=== PATIENT | male | born 1970 | race African-American/Black ===

== ENCOUNTER 2021-12-28 20:03 | Inpatient (IN) ==
[2021-12-28] MEDS ORDERED: MORPHINE 2 MG/1 ML SYRINGE IV STA (20:30)
[2021-12-28] MEDS ORDERED: FUROSEMIDE 100 MG/10 ML VIAL IV STA (20:30)
[2021-12-28] MEDS ORDERED: ALBUTEROL NEB SOLN 5 MG/ML 20 ML/BOTTLE CONT NEB SCH (20:30)
[2021-12-28] MEDS ORDERED: methylPREDNISolone SOD SUC 125 MG/2 ML VIAL IV STA (20:30)
[2021-12-28] MEDS ORDERED: ONDANSETRON 4 MG/2 ML VIAL IV STA (20:30)
[2021-12-28 22:32] LABS: Basophils % 0.4 % (0.0-0.8); Eosinophils # 0.2 10*3/uL (0.0-0.87); Eosinophils % 2.1 % (0.00-10.9); Hematocrit 24.4 VOL% (42.0-52.0); Hemoglobin 7.7 GM/DL (14.0-18.0); Immature Granulocytes % 0.5 %; Immature Granulocytes Absolute 0.05 #; Lymphocytes # 3.4 10*3/uL (1.4-4.0); Lymphocytes % 31.3 % (21.2-54.2); Mean Corpuscular HGB Conc 31.6 GM/DL (32-36); Mean Corpuscular Volume 87.1 FL (87-102); Mean Platelet Volume 9.9 FL (9.6-12.0); Monocytes # 0.7 10*3/uL (0.11-0.8); Monocytes % 6.5 % (1.7-12.7); Neutrophils % 59.2 % (38.7-73.9); Platelet Count 238 T/CUMM (130-400); Red Cell Distribution Width 16.4 % (9.3-17.3); White Blood Count 10.8 T/CUMM (4-12)
[2021-12-28 22:53] LABS: Alanine Aminotransferase 34 U/L (16-61); Alkaline Phosphatase 90 U/L (45-117); Aspartate Amino Transferase 22 U/L (0-37); Bilirubin,Total < 0.39 MG/DL (0.20-1.00); Blood Urea Nitrogen 37 MG/DL (7-18); Calcium 8.4 MG/DL (8.5-10.1); Carbon Dioxide 26 MMOL/L (21-32); Chloride 103 MMOL/L (98-107); Glucose 316 MG/DL (74-106); Osmolality,Calculated 299.4 MOS/KG (273-304); Potassium 3.9 MMOL/L (3.5-5.1); Sodium 140 MMOL/L (136-145); Total Protein 5.9 G/DL (6.4-8.2)
[2021-12-28 22:53] LABS: INR 0.9; PT Patient Result 10.5 SECS (10.1-12.1)
[2021-12-29] MEDS ORDERED: MORPHINE 2 MG/1 ML SYRINGE IV PRN (02:05)
[2021-12-29] MEDS ORDERED: POTASSIUM CHLORIDE 20 MEQ TABLET PO PRN (02:05)
[2021-12-29] MEDS ORDERED: ACETAMINOPHEN 325 MG TABLET PO PRN (02:05)
[2021-12-29] MEDS ORDERED: DEXTROSE 10% 250 ML BAG IV PRN (02:05)
[2021-12-29] MEDS ORDERED: GLUCAGON 1 MG VIAL IM PRN (02:05)
[2021-12-29 03:31] LABS: Basophils % 0.1 % (0.0-0.8); Hematocrit 24.1 VOL% (42.0-52.0); Hemoglobin 7.6 GM/DL (14.0-18.0); Immature Granulocytes % 0.7 %; Immature Granulocytes Absolute 0.07 #; Lymphocytes # 0.3 10*3/uL (1.4-4.0); Lymphocytes % 2.6 % (21.2-54.2); Mean Corpuscular HGB Conc 31.5 GM/DL (32-36); Mean Corpuscular Volume 87.3 FL (87-102); Mean Platelet Volume 9.7 FL (9.6-12.0); Monocytes # 0.1 10*3/uL (0.11-0.8); Monocytes % 0.6 % (1.7-12.7); Platelet Count 225 T/CUMM (130-400); Red Blood Count 2.76 MC/CUMM (3.8-5.5); Red Cell Distribution Width 16.3 % (9.3-17.3); White Blood Count 9.6 T/CUMM (4-12)
[2021-12-29 03:51] LABS: Hypochromia Slight; Lymphocytes 5 % (20-55); Total Cells Counted 100
[2021-12-29 03:52] LABS: Microcytosis 1+; Ovalocytes Slight
[2021-12-29 03:56] LABS: Calcium 8.4 MG/DL (8.5-10.1); Osmolality,Calculated 300.7 MOS/KG (273-304); Potassium 4.4 MMOL/L (3.5-5.1)
[2021-12-29] MEDS: INSULIN LISPRO 100 UNIT/ML SUBCUT SCH ×5 (07:34→23:15)
[2021-12-29] MEDS ORDERED: DILTIAZEM CD 180 MG CAPSULE PO SCH (09:00)
[2021-12-29] MEDS: ISOSORBIDE MONONITRATE 60 MG TABLET PO SCH (09:35)
[2021-12-29] MEDS: SUCRALFATE 1 GM TABLET PO SCH ×4 (09:35→23:14)
[2021-12-29] MEDS: PANTOPRAZOLE 40 MG TABLET PO SCH (09:35)
[2021-12-29] MEDS: levETIRAcetam 500 MG TABLET PO SCH ×2 (09:35→23:14)
[2021-12-29] MEDS: FUROSEMIDE 40 MG/4 ML VIAL IV SCH ×2 (09:35→15:14)
[2021-12-29] MEDS: lisinopriL 20 MG TABLET PO SCH (09:35)
[2021-12-29] MEDS: METOCLOPRAMIDE 10 MG TABLET PO SCH ×2 (09:36→23:14)
[2021-12-29] MEDS ORDERED: INSULIN GLARGINE 100 UNIT/ML SUBCUT ONE (09:43)
[2021-12-29] MEDS: INSULIN GLARGINE 100 UNIT/ML SUBCUT SCH (09:47)
[2021-12-29] MEDS: hydrALAZINE 20 MG/1 ML VIAL IV PRN (12:47)
[2021-12-29 13:52] LABS: Mucus,Urine Occasional /LPF (Occasional); RBC,Urine 145 /HPF (0-4); Squamous Epithelial Cell,Urine Occasional /HPF (0-10); Urine Color Yellow (Yellow)
[2021-12-29 13:53] LABS: Bilirubin,Urine Small mg/dL (Negative); Blood, Urine Large mg/dL (Negative); Glucose,Urine (UA) 250 mg/dL (Negative); Ketones,Urine Trace mg/dL (Negative); Nitrite,Urine Negative (Negative); Protein,Urine >=300 mg/dL (Negative); Urine Appearance Slightly Cloudy (Clear); Urine Urobilinogen 0.2 eU/dL (<2.0)
[2021-12-29] MEDS: carvediloL 3.125 MG TABLET PO SCH ×2 (14:18→23:13)
[2021-12-29] MEDS ORDERED: INSULIN GLARGINE 100 UNIT/ML SUBCUT SCH (21:00)
[2021-12-29] MEDS ORDERED: TAMSULOSIN 0.4 MG CAPSULE PO SCH (21:00)
[2021-12-29] MEDS: MENTHOL/ZINC OXIDE OINT 71 GM JAR TOP SCH (23:13)
[2021-12-29] MEDS: ATORVASTATIN 80 MG TABLET PO SCH (23:14)
[2021-12-30] MEDS ORDERED: SODIUM CHLORIDE 0.9% 500 ML IV ONE ×2 (05:04→05:45)
[2021-12-30] MEDS ORDERED: PHENYLEPHRINE DRIP 40 MG/250 ML PREMIX IV PRN (06:38)
[2021-12-30] MEDS ORDERED: ALBUTEROL/IPRATROPIUM 3 ML NEB RESP TX ONE ×2 (07:23→07:33)
[2021-12-30] MEDS: INSULIN LISPRO 100 UNIT/ML SUBCUT SCH ×3 (07:30→18:00)
[2021-12-30] MEDS ORDERED: LACTATED RINGERS 500 ML IV ONE ×2 (07:33→08:00)
[2021-12-30] MEDS ORDERED: NOREPINEPHRINE 8 MG in SODIUM CHLORIDE 0.9% 242 ML IV PRN (07:46)
[2021-12-30] MEDS: FUROSEMIDE 40 MG/4 ML VIAL IV SCH (08:00)
[2021-12-30] MEDS: SUCRALFATE 1 GM TABLET PO SCH ×3 (08:00→17:00)
[2021-12-30 08:14] LABS: Basophils % 0.1 % (0.0-0.8); Eosinophils % 0.2 % (0.00-10.9); Hematocrit 24.6 VOL% (42.0-52.0); Hemoglobin 7.6 GM/DL (14.0-18.0); Immature Granulocytes % 1.7 %; Immature Granulocytes Absolute 0.21 #; Lymphocytes # 1.6 10*3/uL (1.4-4.0); Lymphocytes % 12.4 % (21.2-54.2); Mean Corpuscular HGB Conc 30.9 GM/DL (32-36); Mean Corpuscular Volume 87.5 FL (87-102); Mean Platelet Volume 9.8 FL (9.6-12.0); Monocytes # 1.1 10*3/uL (0.11-0.8); Monocytes % 8.9 % (1.7-12.7); Neutrophils % 76.7 % (38.7-73.9); Platelet Count 298 T/CUMM (130-400); Red Blood Count 2.81 MC/CUMM (3.8-5.5); Red Cell Distribution Width 16.9 % (9.3-17.3); White Blood Count 12.5 T/CUMM (4-12)
[2021-12-30] MEDS: ONDANSETRON 4 MG/2 ML VIAL IV PRN (08:15)
[2021-12-30 08:27] LABS: Calcium 7.9 MG/DL (8.5-10.1); Osmolality,Calculated 296.3 MOS/KG (273-304); Potassium 4.7 MMOL/L (3.5-5.1)
[2021-12-30] MEDS: lisinopriL 20 MG TABLET PO SCH (08:30)
[2021-12-30 08:31] LABS: Alanine Aminotransferase 29 U/L (16-61); Albumin 1.8 G/DL (3.4-5.0); Alkaline Phosphatase 82 U/L (45-117); Aspartate Amino Transferase 22 U/L (0-37); Bilirubin,Total < 0.39 MG/DL (0.20-1.00); Blood Urea Nitrogen 51 MG/DL (7-18); Carbon Dioxide 24 MMOL/L (21-32); Chloride 107 MMOL/L (98-107); Glucose 130 MG/DL (74-106); Osmolality,Calculated 294.4 MOS/KG (273-304); Phosphorous 4.8 MG/DL (2.5-4.9); Potassium 4.7 MMOL/L (3.5-5.1); Sodium 140 MMOL/L (136-145); Total Protein 5.7 G/DL (6.4-8.2)
[2021-12-30] MEDS: INSULIN GLARGINE 100 UNIT/ML SUBCUT SCH (09:00)
[2021-12-30] MEDS: levETIRAcetam 500 MG TABLET PO SCH (09:25)
[2021-12-30] MEDS: METOCLOPRAMIDE 10 MG TABLET PO SCH ×2 (09:25→22:30)
[2021-12-30] MEDS: ISOSORBIDE MONONITRATE 60 MG TABLET PO SCH (09:25)
[2021-12-30] MEDS: PANTOPRAZOLE 40 MG TABLET PO SCH (09:25)
[2021-12-30] MEDS: MENTHOL/ZINC OXIDE OINT 71 GM JAR TOP SCH (09:30)
[2021-12-31] MEDS: MENTHOL/ZINC OXIDE OINT 71 GM JAR TOP SCH ×3 (00:46→20:30)
[2021-12-31] MEDS: levETIRAcetam 500 MG TABLET PO SCH ×3 (00:46→20:30)
[2021-12-31] MEDS: ATORVASTATIN 80 MG TABLET PO SCH ×2 (00:46→20:30)
[2021-12-31] MEDS: SUCRALFATE 1 GM TABLET PO SCH ×5 (00:46→20:30)
[2021-12-31] MEDS: INSULIN LISPRO 100 UNIT/ML SUBCUT SCH ×5 (01:04→20:31)
[2021-12-31 05:15] LABS: Basophils % 0.3 % (0.0-0.8); Eosinophils # 0.3 10*3/uL (0.0-0.87); Eosinophils % 2.7 % (0.00-10.9); Hematocrit 23.1 VOL% (42.0-52.0); Hemoglobin 7.4 GM/DL (14.0-18.0); Immature Granulocytes % 0.5 %; Immature Granulocytes Absolute 0.05 #; Lymphocytes # 1.5 10*3/uL (1.4-4.0); Lymphocytes % 16.7 % (21.2-54.2); Mean Corpuscular Volume 87.5 FL (87-102); Mean Platelet Volume 10.1 FL (9.6-12.0); Monocytes # 0.8 10*3/uL (0.11-0.8); Neutrophils % 70.8 % (38.7-73.9); Platelet Count 263 T/CUMM (130-400); Red Blood Count 2.64 MC/CUMM (3.8-5.5); Red Cell Distribution Width 16.7 % (9.3-17.3); White Blood Count 9.1 T/CUMM (4-12)
[2021-12-31 05:20] LABS: Osmolality,Calculated 288.8 MOS/KG (273-304); Phosphorous 4.8 MG/DL (2.5-4.9); Potassium 4.2 MMOL/L (3.5-5.1)
[2021-12-31] MEDS: PANTOPRAZOLE 40 MG TABLET PO SCH (09:00)
[2021-12-31] MEDS: INSULIN GLARGINE 100 UNIT/ML SUBCUT SCH (09:00)
[2021-12-31] MEDS: ISOSORBIDE MONONITRATE 60 MG TABLET PO SCH (09:00)
[2021-12-31] MEDS: METOCLOPRAMIDE 10 MG TABLET PO SCH ×2 (09:00→20:30)
[2022-01-01 04:25] LABS: Basophils % 0.4 % (0.0-0.8); Eosinophils # 0.3 10*3/uL (0.0-0.87); Eosinophils % 3.9 % (0.00-10.9); Immature Granulocytes % 0.6 %; Immature Granulocytes Absolute 0.05 #; Lymphocytes # 1.6 10*3/uL (1.4-4.0); Lymphocytes % 19.5 % (21.2-54.2); Mean Corpuscular HGB Conc 31.8 GM/DL (32-36); Mean Platelet Volume 9.7 FL (9.6-12.0); Monocytes # 0.7 10*3/uL (0.11-0.8); Monocytes % 8.6 % (1.7-12.7); Platelet Count 248 T/CUMM (130-400); Red Blood Count 2.53 MC/CUMM (3.8-5.5); Red Cell Distribution Width 16.3 % (9.3-17.3); White Blood Count 8.2 T/CUMM (4-12)
[2022-01-01 04:41] LABS: Calcium 7.8 MG/DL (8.5-10.1); Osmolality,Calculated 292.8 MOS/KG (273-304); Potassium 4.3 MMOL/L (3.5-5.1)
[2022-01-01] MEDS: SUCRALFATE 1 GM TABLET PO SCH ×4 (08:41→20:58)
[2022-01-01] MEDS: INSULIN LISPRO 100 UNIT/ML SUBCUT SCH ×4 (08:41→21:23)
[2022-01-01] MEDS: INSULIN GLARGINE 100 UNIT/ML SUBCUT SCH (08:41)
[2022-01-01] MEDS: PANTOPRAZOLE 40 MG TABLET PO SCH (08:41)
[2022-01-01] MEDS: ISOSORBIDE MONONITRATE 60 MG TABLET PO SCH (08:41)
[2022-01-01] MEDS: levETIRAcetam 500 MG TABLET PO SCH ×2 (08:41→20:57)
[2022-01-01] MEDS: METOCLOPRAMIDE 10 MG TABLET PO SCH ×2 (08:42→20:57)
[2022-01-01] MEDS: MENTHOL/ZINC OXIDE OINT 71 GM JAR TOP SCH ×2 (08:42→20:58)
[2022-01-01] MEDS: TAMSULOSIN 0.4 MG CAPSULE PO SCH (11:55)
[2022-01-01] MEDS: ATORVASTATIN 80 MG TABLET PO SCH (20:57)
[2022-01-02 04:50] LABS: Basophils % 0.1 % (0.0-0.8); Eosinophils # 0.3 10*3/uL (0.0-0.87); Eosinophils % 3.5 % (0.00-10.9); Hematocrit 23.3 VOL% (42.0-52.0); Hemoglobin 7.3 GM/DL (14.0-18.0); Immature Granulocytes % 0.5 %; Immature Granulocytes Absolute 0.04 #; Lymphocytes # 1.7 10*3/uL (1.4-4.0); Lymphocytes % 22.2 % (21.2-54.2); Mean Corpuscular HGB Conc 31.3 GM/DL (32-36); Mean Corpuscular Volume 87.6 FL (87-102); Mean Platelet Volume 9.6 FL (9.6-12.0); Monocytes # 0.7 10*3/uL (0.11-0.8); Monocytes % 9.2 % (1.7-12.7); Neutrophils % 64.5 % (38.7-73.9); Platelet Count 274 T/CUMM (130-400); Red Blood Count 2.66 MC/CUMM (3.8-5.5); Red Cell Distribution Width 16.1 % (9.3-17.3); White Blood Count 7.7 T/CUMM (4-12)
[2022-01-02 05:09] LABS: Calcium 7.9 MG/DL (8.5-10.1); Osmolality,Calculated 296.3 MOS/KG (273-304); Potassium 4.1 MMOL/L (3.5-5.1)
[2022-01-02] MEDS: ISOSORBIDE MONONITRATE 60 MG TABLET PO SCH (09:11)
[2022-01-02] MEDS: SUCRALFATE 1 GM TABLET PO SCH ×4 (09:12→20:11)
[2022-01-02] MEDS: TAMSULOSIN 0.4 MG CAPSULE PO SCH (09:12)
[2022-01-02] MEDS: PANTOPRAZOLE 40 MG TABLET PO SCH (09:13)
[2022-01-02] MEDS: METOCLOPRAMIDE 10 MG TABLET PO SCH ×2 (09:13→20:11)
[2022-01-02] MEDS: INSULIN LISPRO 100 UNIT/ML SUBCUT SCH ×4 (09:14→21:33)
[2022-01-02] MEDS: levETIRAcetam 500 MG TABLET PO SCH ×2 (09:14→20:11)
[2022-01-02] MEDS: INSULIN GLARGINE 100 UNIT/ML SUBCUT SCH (09:19)
[2022-01-02] MEDS: MENTHOL/ZINC OXIDE OINT 71 GM JAR TOP SCH ×2 (12:29→20:23)
[2022-01-02] MEDS: ATORVASTATIN 80 MG TABLET PO SCH (20:11)
[2022-01-02] MEDS: ONDANSETRON 4 MG/2 ML VIAL IV PRN (20:23)
[2022-01-03] MEDS: hydrALAZINE 20 MG/1 ML VIAL IV PRN (00:08)
[2022-01-03 04:26] LABS: Basophils % 0.3 % (0.0-0.8); Eosinophils # 0.3 10*3/uL (0.0-0.87); Eosinophils % 3.4 % (0.00-10.9); Hematocrit 23.1 VOL% (42.0-52.0); Hemoglobin 7.4 GM/DL (14.0-18.0); Immature Granulocytes % 0.4 %; Immature Granulocytes Absolute 0.03 #; Lymphocytes # 1.5 10*3/uL (1.4-4.0); Lymphocytes % 20.4 % (21.2-54.2); Mean Corpuscular Volume 86.8 FL (87-102); Mean Platelet Volume 9.7 FL (9.6-12.0); Monocytes # 0.6 10*3/uL (0.11-0.8); Monocytes % 7.6 % (1.7-12.7); Neutrophils % 67.9 % (38.7-73.9); Platelet Count 297 T/CUMM (130-400); Red Blood Count 2.66 MC/CUMM (3.8-5.5); Red Cell Distribution Width 16.1 % (9.3-17.3); White Blood Count 7.3 T/CUMM (4-12)
[2022-01-03 04:41] LABS: Calcium 8.2 MG/DL (8.5-10.1); Osmolality,Calculated 295.3 MOS/KG (273-304); Potassium 4.2 MMOL/L (3.5-5.1)
[2022-01-03] MEDS ORDERED: SODIUM CHLORIDE 0.9% 1,000 ML IV PRN (07:41)
[2022-01-03] MEDS ORDERED: MAGNESIUM HYDROXIDE SUSP 30 ML UDCUP PO ONE (08:25)
[2022-01-03] MEDS: TAMSULOSIN 0.4 MG CAPSULE PO SCH (09:08)
[2022-01-03] MEDS: ISOSORBIDE MONONITRATE 60 MG TABLET PO SCH (09:08)
[2022-01-03] MEDS: SUCRALFATE 1 GM TABLET PO SCH ×4 (09:09→20:26)
[2022-01-03] MEDS: PANTOPRAZOLE 40 MG TABLET PO SCH (09:09)
[2022-01-03] MEDS: levETIRAcetam 500 MG TABLET PO SCH ×2 (09:09→20:26)
[2022-01-03] MEDS: POLYETHYLENE GLYCOL POWDER 17 GM PACK PO SCH (09:10)
[2022-01-03] MEDS: DOCUSATE SODIUM 100 MG CAPSULE PO SCH ×2 (09:21→20:26)
[2022-01-03] MEDS: METOCLOPRAMIDE 10 MG TABLET PO SCH ×2 (09:21→20:26)
[2022-01-03] MEDS: MENTHOL/ZINC OXIDE OINT 71 GM JAR TOP SCH ×2 (09:22→20:36)
[2022-01-03] MEDS: INSULIN LISPRO 100 UNIT/ML SUBCUT SCH ×4 (10:47→20:36)
[2022-01-03] MEDS: INSULIN GLARGINE 100 UNIT/ML SUBCUT SCH (10:48)
[2022-01-03 14:42] LABS: Hematocrit 26.6 VOL% (42.0-52.0); Hemoglobin 8.5 GM/DL (14.0-18.0)
[2022-01-03] MEDS: ATORVASTATIN 80 MG TABLET PO SCH (20:26)
[2022-01-04 05:38] LABS: Basophils % 0.3 % (0.0-0.8); Eosinophils # 0.2 10*3/uL (0.0-0.87); Hematocrit 26.3 VOL% (42.0-52.0); Hemoglobin 8.4 GM/DL (14.0-18.0); Immature Granulocytes % 0.5 %; Immature Granulocytes Absolute 0.04 #; Lymphocytes # 1.3 10*3/uL (1.4-4.0); Lymphocytes % 16.4 % (21.2-54.2); Mean Corpuscular HGB Conc 31.9 GM/DL (32-36); Mean Corpuscular Volume 88.6 FL (87-102); Mean Platelet Volume 10.2 FL (9.6-12.0); Monocytes # 0.6 10*3/uL (0.11-0.8); Monocytes % 7.6 % (1.7-12.7); Neutrophils % 72.2 % (38.7-73.9); Platelet Count 260 T/CUMM (130-400); Red Blood Count 2.97 MC/CUMM (3.8-5.5); Red Cell Distribution Width 16.3 % (9.3-17.3); White Blood Count 7.7 T/CUMM (4-12)
[2022-01-04 05:56] LABS: Calcium 8.2 MG/DL (8.5-10.1); Osmolality,Calculated 299.3 MOS/KG (273-304); Potassium 4.8 MMOL/L (3.5-5.1)
[2022-01-04] MEDS: INSULIN LISPRO 100 UNIT/ML SUBCUT SCH ×4 (08:02→22:20)
[2022-01-04] MEDS: POLYETHYLENE GLYCOL POWDER 17 GM PACK PO SCH (09:07)
[2022-01-04] MEDS: INSULIN GLARGINE 100 UNIT/ML SUBCUT SCH (09:07)
[2022-01-04] MEDS: ISOSORBIDE MONONITRATE 60 MG TABLET PO SCH (09:08)
[2022-01-04] MEDS: TAMSULOSIN 0.4 MG CAPSULE PO SCH (09:08)
[2022-01-04] MEDS: METOCLOPRAMIDE 10 MG TABLET PO SCH ×2 (09:08→22:18)
[2022-01-04] MEDS: DOCUSATE SODIUM 100 MG CAPSULE PO SCH ×2 (09:08→22:19)
[2022-01-04] MEDS: SUCRALFATE 1 GM TABLET PO SCH ×4 (09:08→22:18)
[2022-01-04] MEDS: levETIRAcetam 500 MG TABLET PO SCH ×2 (09:08→22:18)
[2022-01-04] MEDS: PANTOPRAZOLE 40 MG TABLET PO SCH (09:08)
[2022-01-04] MEDS: MENTHOL/ZINC OXIDE OINT 71 GM JAR TOP SCH ×2 (09:09→22:19)
[2022-01-04] MEDS: ALBUMIN 25% 12.5 GM/50 ML VIAL IV SCH ×2 (09:48→22:18)
[2022-01-04] MEDS: FUROSEMIDE 40 MG/4 ML VIAL IV SCH (15:48)
[2022-01-04] MEDS: LACTULOSE 20 GM/30 ML UDCUP PO SCH (17:22)
[2022-01-04] MEDS ORDERED: cloNIDine 0.1 MG TABLET PO SCH (21:00)
[2022-01-04] MEDS: ATORVASTATIN 80 MG TABLET PO SCH (22:21)
[2022-01-05] MEDS: LACTULOSE 20 GM/30 ML UDCUP PO SCH (00:01)
[2022-01-05] MEDS ORDERED: LACTULOSE 20 GM/30 ML UDCUP PO PRN (04:29)
[2022-01-05] MEDS: hydrALAZINE 20 MG/1 ML VIAL IV PRN ×3 (05:24→18:09)
[2022-01-05 05:39] LABS: Basophils % 0.3 % (0.0-0.8); Eosinophils # 0.3 10*3/uL (0.0-0.87); Eosinophils % 3.7 % (0.00-10.9); Hematocrit 25.1 VOL% (42.0-52.0); Immature Granulocytes % 0.6 %; Immature Granulocytes Absolute 0.04 #; Lymphocytes # 1.4 10*3/uL (1.4-4.0); Lymphocytes % 19.7 % (21.2-54.2); Mean Corpuscular HGB Conc 31.9 GM/DL (32-36); Mean Corpuscular Volume 87.2 FL (87-102); Mean Platelet Volume 9.6 FL (9.6-12.0); Monocytes # 0.6 10*3/uL (0.11-0.8); Neutrophils % 67.7 % (38.7-73.9); Platelet Count 268 T/CUMM (130-400); Red Blood Count 2.88 MC/CUMM (3.8-5.5); Red Cell Distribution Width 16.4 % (9.3-17.3); White Blood Count 7.2 T/CUMM (4-12)
[2022-01-05 05:59] LABS: Alanine Aminotransferase 16 U/L (16-61); Alkaline Phosphatase 68 U/L (45-117); Aspartate Amino Transferase 12 U/L (0-37); Bilirubin,Total < 0.39 MG/DL (0.20-1.00); Blood Urea Nitrogen 51 MG/DL (7-18); Calcium 8.2 MG/DL (8.5-10.1); Carbon Dioxide 27 MMOL/L (21-32); Chloride 110 MMOL/L (98-107); Glucose 87 MG/DL (74-106); Potassium 3.9 MMOL/L (3.5-5.1); Sodium 143 MMOL/L (136-145); Total Protein 5.9 G/DL (6.4-8.2)
[2022-01-05] MEDS ORDERED: cloNIDine 0.1 MG TABLET PO ONE (06:06)
[2022-01-05 06:13] LABS: Calcium 8.2 MG/DL (8.5-10.1); Osmolality,Calculated 298.8 MOS/KG (273-304)
[2022-01-05] MEDS: DOCUSATE SODIUM 100 MG CAPSULE PO SCH ×2 (08:16→22:42)
[2022-01-05] MEDS: ISOSORBIDE MONONITRATE 60 MG TABLET PO SCH (08:16)
[2022-01-05] MEDS: MENTHOL/ZINC OXIDE OINT 71 GM JAR TOP SCH ×2 (08:16→22:41)
[2022-01-05] MEDS: FUROSEMIDE 40 MG/4 ML VIAL IV SCH ×2 (08:16→16:15)
[2022-01-05] MEDS: TAMSULOSIN 0.4 MG CAPSULE PO SCH (08:17)
[2022-01-05] MEDS: PANTOPRAZOLE 40 MG TABLET PO SCH (08:17)
[2022-01-05] MEDS: POLYETHYLENE GLYCOL POWDER 17 GM PACK PO SCH (08:18)
[2022-01-05] MEDS: INSULIN LISPRO 100 UNIT/ML SUBCUT SCH ×4 (08:18→22:42)
[2022-01-05] MEDS: SUCRALFATE 1 GM TABLET PO SCH ×4 (08:21→22:41)
[2022-01-05] MEDS: METOCLOPRAMIDE 10 MG TABLET PO SCH ×2 (08:22→22:42)
[2022-01-05] MEDS: levETIRAcetam 500 MG TABLET PO SCH ×2 (08:22→22:42)
[2022-01-05] MEDS: INSULIN GLARGINE 100 UNIT/ML SUBCUT SCH (08:23)
[2022-01-05] MEDS: ALBUMIN 25% 12.5 GM/50 ML VIAL IV SCH ×2 (08:24→22:41)
[2022-01-05] MEDS ORDERED: cloNIDine 0.1 MG TABLET PO SCH (09:00)
[2022-01-05] MEDS: cloNIDine 0.1 MG TABLET PO PRN ×4 (10:20→19:42)
[2022-01-05] MEDS: ATORVASTATIN 80 MG TABLET PO SCH (22:42)
[2022-01-05] MEDS: cloNIDine 0.1 MG TABLET PO SCH (22:42)
[2022-01-06] MEDS: hydrALAZINE 20 MG/1 ML VIAL IV PRN ×3 (00:47→16:36)
[2022-01-06] MEDS: cloNIDine 0.1 MG TABLET PO PRN ×2 (03:00→10:59)
[2022-01-06 05:45] LABS: Calcium 8.6 MG/DL (8.5-10.1); Osmolality,Calculated 295.8 MOS/KG (273-304); Potassium 3.8 MMOL/L (3.5-5.1)
[2022-01-06] MEDS: INSULIN LISPRO 100 UNIT/ML SUBCUT SCH ×4 (08:18→20:42)
[2022-01-06] MEDS: DOCUSATE SODIUM 100 MG CAPSULE PO SCH ×2 (08:20→20:48)
[2022-01-06] MEDS: POLYETHYLENE GLYCOL POWDER 17 GM PACK PO SCH (08:21)
[2022-01-06] MEDS: SUCRALFATE 1 GM TABLET PO SCH ×4 (08:26→20:48)
[2022-01-06] MEDS: levETIRAcetam 500 MG TABLET PO SCH ×2 (08:26→20:47)
[2022-01-06] MEDS: TAMSULOSIN 0.4 MG CAPSULE PO SCH (08:27)
[2022-01-06] MEDS: ISOSORBIDE MONONITRATE 60 MG TABLET PO SCH (08:27)
[2022-01-06] MEDS: cloNIDine 0.1 MG TABLET PO SCH ×3 (08:27→20:47)
[2022-01-06] MEDS: INSULIN GLARGINE 100 UNIT/ML SUBCUT SCH (08:27)
[2022-01-06] MEDS: PANTOPRAZOLE 40 MG TABLET PO SCH (08:27)
[2022-01-06] MEDS: FUROSEMIDE 40 MG/4 ML VIAL IV SCH (08:28)
[2022-01-06] MEDS: MENTHOL/ZINC OXIDE OINT 71 GM JAR TOP SCH ×2 (08:28→20:47)
[2022-01-06] MEDS: METOCLOPRAMIDE 10 MG TABLET PO SCH ×2 (08:34→20:48)
[2022-01-06] MEDS: ATORVASTATIN 80 MG TABLET PO SCH (20:47)
[2022-01-07] MEDS: hydrALAZINE 20 MG/1 ML VIAL IV PRN (04:32)
[2022-01-07] MEDS: cloNIDine 0.1 MG TABLET PO SCH ×3 (09:44→21:41)
[2022-01-07] MEDS: ISOSORBIDE MONONITRATE 60 MG TABLET PO SCH (09:45)
[2022-01-07] MEDS: DOCUSATE SODIUM 100 MG CAPSULE PO SCH ×2 (09:45→21:41)
[2022-01-07] MEDS: SUCRALFATE 1 GM TABLET PO SCH ×4 (09:45→21:41)
[2022-01-07] MEDS: levETIRAcetam 500 MG TABLET PO SCH ×2 (09:46→21:41)
[2022-01-07] MEDS: METOCLOPRAMIDE 10 MG TABLET PO SCH ×2 (09:47→21:41)
[2022-01-07] MEDS: TAMSULOSIN 0.4 MG CAPSULE PO SCH (09:47)
[2022-01-07] MEDS: PANTOPRAZOLE 40 MG TABLET PO SCH (09:48)
[2022-01-07] MEDS: INSULIN LISPRO 100 UNIT/ML SUBCUT SCH ×4 (10:07→21:47)
[2022-01-07] MEDS: MENTHOL/ZINC OXIDE OINT 71 GM JAR TOP SCH ×2 (10:08→21:42)
[2022-01-07] MEDS: POLYETHYLENE GLYCOL POWDER 17 GM PACK PO SCH (10:08)
[2022-01-07] MEDS: INSULIN GLARGINE 100 UNIT/ML SUBCUT SCH (10:08)
[2022-01-07] MEDS: ATORVASTATIN 80 MG TABLET PO SCH (21:41)
[2022-01-08 05:07] LABS: Calcium 8.2 MG/DL (8.5-10.1); Osmolality,Calculated 291.1 MOS/KG (273-304); Potassium 3.7 MMOL/L (3.5-5.1)
[2022-01-08] MEDS: TAMSULOSIN 0.4 MG CAPSULE PO SCH (09:51)
[2022-01-08] MEDS: cloNIDine 0.1 MG TABLET PO SCH ×2 (09:51→14:36)
[2022-01-08] MEDS: PANTOPRAZOLE 40 MG TABLET PO SCH (09:52)
[2022-01-08] MEDS: ISOSORBIDE MONONITRATE 60 MG TABLET PO SCH (09:52)
[2022-01-08] MEDS: levETIRAcetam 500 MG TABLET PO SCH (09:53)
[2022-01-08] MEDS: SUCRALFATE 1 GM TABLET PO SCH ×2 (09:53→13:19)
[2022-01-08] MEDS: DOCUSATE SODIUM 100 MG CAPSULE PO SCH (09:53)
[2022-01-08] MEDS: METOCLOPRAMIDE 10 MG TABLET PO SCH (09:54)
[2022-01-08] MEDS: MENTHOL/ZINC OXIDE OINT 71 GM JAR TOP SCH (10:05)
[2022-01-08] MEDS: INSULIN GLARGINE 100 UNIT/ML SUBCUT SCH (10:08)
[2022-01-08] MEDS: INSULIN LISPRO 100 UNIT/ML SUBCUT SCH ×2 (10:09→13:54)
[2022-01-08] MEDS: POLYETHYLENE GLYCOL POWDER 17 GM PACK PO SCH (10:09)
[2022-01-08] MEDS ORDERED: SPIRONOLACTONE 25 MG TABLET PO SCH (10:30)
[2022-01-08 16:11] VITALS: BP 140/66
== END 2022-01-08 16:49 | disposition home health service (06) | DRG 291 ==
LOC: N.EDINP 20:03 → N.ED 20:03 → N.EDINP 12-29 07:54 → N.TELES 12-29 08:13 → SUATTDRO 12-29 09:48 → N.ICU 12-30 06:43 → N.TELES 01-01 14:38
PROVIDERS: ADMIT Internal Medicine; ATTEND Internal Medicine

== ENCOUNTER 2022-03-02 16:48 | Inpatient (IN) ==
[2022-03-02 17:56] LABS: Basophils % 0.4 % (0.0-0.8); Eosinophils # 0.2 10*3/uL (0.0-0.87); Eosinophils % 3.3 % (0.00-10.9); Hematocrit 24.3 VOL% (42.0-52.0); Hemoglobin 7.4 GM/DL (14.0-18.0); Immature Granulocytes % 0.3 %; Immature Granulocytes Absolute 0.02 #; Lymphocytes # 0.9 10*3/uL (1.4-4.0); Lymphocytes % 11.9 % (21.2-54.2); Mean Corpuscular HGB Conc 30.5 GM/DL (32-36); Mean Corpuscular Volume 88.4 FL (87-102); Mean Platelet Volume 9.9 FL (9.6-12.0); Monocytes # 0.5 10*3/uL (0.11-0.8); Monocytes % 6.2 % (1.7-12.7); Neutrophils % 77.9 % (38.7-73.9); Platelet Count 237 T/CUMM (130-400); Red Blood Count 2.75 MC/CUMM (3.8-5.5); Red Cell Distribution Width 15.8 % (9.3-17.3); White Blood Count 7.3 T/CUMM (4-12)
[2022-03-02 18:07] LABS: INR 1.1; PT Patient Result 12.4 SECS (10.1-12.1); Partial Thromboplastin Time 32.3 SECS (23.7-32.9)
[2022-03-02 18:12] LABS: Lactic Acid 0.7 MMOL/L (0.4-2.0)
[2022-03-02 18:14] LABS: Alanine Aminotransferase 58 U/L (16-61); Albumin 2.5 G/DL (3.4-5.0); Alkaline Phosphatase 146 U/L (45-117); Aspartate Amino Transferase 61 U/L (0-37); Bilirubin,Total < 0.39 MG/DL (0.20-1.00); Blood Urea Nitrogen 67 MG/DL (7-18); Calcium 8.3 MG/DL (8.5-10.1); Carbon Dioxide 26 MMOL/L (21-32); Chloride 108 MMOL/L (98-107); Glucose 314 MG/DL (74-106); Osmolality,Calculated 307.5 MOS/KG (273-304); Potassium 4.7 MMOL/L (3.5-5.1); Sodium 139 MMOL/L (136-145)
[2022-03-02] MEDS ORDERED: ALBUTEROL/IPRATROPIUM 3 ML NEB RESP TX STA (18:15)
[2022-03-02] MEDS ORDERED: FUROSEMIDE 40 MG/4 ML VIAL IV STA (18:59)
[2022-03-02] MEDS ORDERED: PROMETHAZINE 25 MG TABLET PO PRN (19:32)
[2022-03-02] MEDS ORDERED: ZALEPLON 5 MG CAPSULE PO PRN (19:35)
[2022-03-02] MEDS ORDERED: DOXAZOSIN 1 MG TABLET PO ONE (20:00)
[2022-03-02] MEDS: DOCUSATE SODIUM 100 MG CAPSULE PO SCH (20:48)
[2022-03-02] MEDS: ATORVASTATIN 80 MG TABLET PO SCH (20:48)
[2022-03-02] MEDS: carvediloL 12.5 MG TABLET PO SCH (20:48)
[2022-03-02] MEDS: PANTOPRAZOLE 40 MG TABLET PO SCH (20:48)
[2022-03-02] MEDS: INSULIN REGULAR 100 UNIT/ML SUBCUT SCH (23:29)
[2022-03-02] MEDS: HEPARIN 5,000 UNIT/1 ML VIAL SUBCUT SCH (23:29)
[2022-03-03] MEDS: ALBUTEROL/IPRATROPIUM 3 ML NEB RESP TX SCH ×4 (00:33→19:00)
[2022-03-03] MEDS: hydrALAZINE 20 MG/1 ML VIAL IV PRN (02:02)
[2022-03-03 06:36] LABS: Basophils % 0.4 % (0.0-0.8); Eosinophils # 0.1 10*3/uL (0.0-0.87); Eosinophils % 1.5 % (0.00-10.9); Hematocrit 23.8 VOL% (42.0-52.0); Hemoglobin 7.4 GM/DL (14.0-18.0); Immature Granulocytes % 0.5 %; Immature Granulocytes Absolute 0.04 #; Lymphocytes # 0.8 10*3/uL (1.4-4.0); Lymphocytes % 10.7 % (21.2-54.2); Mean Corpuscular HGB Conc 31.1 GM/DL (32-36); Mean Corpuscular Volume 87.5 FL (87-102); Monocytes # 0.6 10*3/uL (0.11-0.8); Monocytes % 7.7 % (1.7-12.7); Neutrophils % 79.2 % (38.7-73.9); Platelet Count 244 T/CUMM (130-400); Red Blood Count 2.72 MC/CUMM (3.8-5.5); Red Cell Distribution Width 15.5 % (9.3-17.3); White Blood Count 7.4 T/CUMM (4-12)
[2022-03-03 07:03] LABS: Calcium 8.4 MG/DL (8.5-10.1); Osmolality,Calculated 310.1 MOS/KG (273-304); Potassium 4.2 MMOL/L (3.5-5.1); Thyroid Stimulating Hormone 1.74 uIU/ml (0.358-3.74)
[2022-03-03] MEDS: ONDANSETRON 4 MG/2 ML VIAL IV PRN (07:58)
[2022-03-03] MEDS ORDERED: FUROSEMIDE 40 MG/4 ML VIAL IV SCH (08:00)
[2022-03-03] MEDS ORDERED: SODIUM CHLORIDE 0.9% 1,000 ML IV PRN (09:51)
[2022-03-03] MEDS: INSULIN REGULAR 100 UNIT/ML SUBCUT SCH ×4 (10:19→21:31)
[2022-03-03] MEDS: ASPIRIN CHEW 81 MG TABLET PO SCH (10:37)
[2022-03-03] MEDS: OSELTAMIVIR 30 MG CAPSULE PO SCH ×2 (10:38→21:33)
[2022-03-03] MEDS: PANTOPRAZOLE 40 MG TABLET PO SCH ×2 (10:38→21:32)
[2022-03-03] MEDS: ISOSORBIDE MONONITRATE 60 MG TABLET PO SCH (10:39)
[2022-03-03] MEDS: CLOPIDOGREL 75 MG TABLET PO SCH (10:40)
[2022-03-03] MEDS: carvediloL 12.5 MG TABLET PO SCH ×2 (10:40→21:33)
[2022-03-03] MEDS: TAMSULOSIN 0.4 MG CAPSULE PO SCH (10:41)
[2022-03-03] MEDS: DOCUSATE SODIUM 100 MG CAPSULE PO SCH ×2 (10:44→21:32)
[2022-03-03] MEDS: HEPARIN 5,000 UNIT/1 ML VIAL SUBCUT SCH ×2 (10:46→21:42)
[2022-03-03] MEDS: LEVOFLOXACIN INJ 500 MG/100 ML PREMIX IV SCH (18:05)
[2022-03-03] MEDS ORDERED: INSULIN GLARGINE 100 UNIT/ML SUBCUT SCH ×2 (21:00)
[2022-03-03] MEDS: LINEZOLID 600 MG TABLET PO SCH (21:33)
[2022-03-03] MEDS: ATORVASTATIN 80 MG TABLET PO SCH (21:33)
[2022-03-03] MEDS: DOXAZOSIN 1 MG TABLET PO SCH (21:33)
[2022-03-04] MEDS: hydrALAZINE 20 MG/1 ML VIAL IV PRN ×2 (00:35→20:09)
[2022-03-04] MEDS: ALBUTEROL/IPRATROPIUM 3 ML NEB RESP TX SCH ×4 (00:50→19:05)
[2022-03-04] MEDS ORDERED: FUROSEMIDE 40 MG/4 ML VIAL IV ONE (04:00)
[2022-03-04 04:37] LABS: Basophils % 0.1 % (0.0-0.8); Eosinophils # 0.2 10*3/uL (0.0-0.87); Eosinophils % 2.8 % (0.00-10.9); Hematocrit 27.8 VOL% (42.0-52.0); Immature Granulocytes % 0.3 %; Immature Granulocytes Absolute 0.02 #; Lymphocytes # 1.1 10*3/uL (1.4-4.0); Lymphocytes % 15.9 % (21.2-54.2); Mean Corpuscular HGB Conc 32.4 GM/DL (32-36); Mean Corpuscular Volume 87.1 FL (87-102); Mean Platelet Volume 9.8 FL (9.6-12.0); Monocytes # 0.5 10*3/uL (0.11-0.8); Monocytes % 7.3 % (1.7-12.7); Neutrophils % 73.6 % (38.7-73.9); Platelet Count 224 T/CUMM (130-400); Red Blood Count 3.19 MC/CUMM (3.8-5.5); Red Cell Distribution Width 15.1 % (9.3-17.3); White Blood Count 7.2 T/CUMM (4-12)
[2022-03-04 04:56] LABS: Calcium 8.6 MG/DL (8.5-10.1); Osmolality,Calculated 306.6 MOS/KG (273-304); Potassium 4.4 MMOL/L (3.5-5.1)
[2022-03-04] MEDS: DEXTROSE 10% 250 ML BAG IV PRN ×2 (05:42→20:09)
[2022-03-04] MEDS: INSULIN REGULAR 100 UNIT/ML SUBCUT SCH ×4 (08:10→20:08)
[2022-03-04] MEDS: ASPIRIN CHEW 81 MG TABLET PO SCH (08:11)
[2022-03-04] MEDS: carvediloL 12.5 MG TABLET PO SCH ×2 (08:11→21:09)
[2022-03-04] MEDS: DOCUSATE SODIUM 100 MG CAPSULE PO SCH ×2 (08:11→21:09)
[2022-03-04] MEDS: HEPARIN 5,000 UNIT/1 ML VIAL SUBCUT SCH ×2 (08:12→21:09)
[2022-03-04] MEDS: CLOPIDOGREL 75 MG TABLET PO SCH (08:12)
[2022-03-04] MEDS: ISOSORBIDE MONONITRATE 60 MG TABLET PO SCH (08:12)
[2022-03-04] MEDS: TAMSULOSIN 0.4 MG CAPSULE PO SCH (08:12)
[2022-03-04] MEDS: OSELTAMIVIR 30 MG CAPSULE PO SCH ×2 (08:13→21:10)
[2022-03-04] MEDS: PANTOPRAZOLE 40 MG TABLET PO SCH ×2 (08:13→21:09)
[2022-03-04] MEDS: LINEZOLID 600 MG TABLET PO SCH ×2 (08:13→21:10)
[2022-03-04] MEDS: minoxidiL 2.5 MG TABLET PO SCH ×2 (10:16→21:09)
[2022-03-04] MEDS: ONDANSETRON 4 MG/2 ML VIAL IV PRN ×2 (11:33→16:32)
[2022-03-04] MEDS: ACETAMINOPHEN 325 MG TABLET PO PRN (11:39)
[2022-03-04] MEDS: GLUCAGON 1 MG VIAL IM PRN ×3 (12:26→22:40)
[2022-03-04] MEDS: FUROSEMIDE 40 MG TABLET PO SCH (18:07)
[2022-03-04] MEDS ORDERED: INSULIN GLARGINE 100 UNIT/ML SUBCUT SCH (21:00)
[2022-03-04] MEDS: DOXAZOSIN 1 MG TABLET PO SCH (21:09)
[2022-03-04] MEDS: HYDROCORTISONE 100 MG VIAL IV SCH (21:09)
[2022-03-04] MEDS: ATORVASTATIN 80 MG TABLET PO SCH (21:09)
[2022-03-04] MEDS: DEXTROSE 10% 1,000 ML IV SCH (22:40)
[2022-03-05] MEDS: ALBUTEROL/IPRATROPIUM 3 ML NEB RESP TX SCH ×4 (00:22→19:10)
[2022-03-05] MEDS: HYDROCORTISONE 100 MG VIAL IV SCH ×3 (02:11→16:45)
[2022-03-05] MEDS: hydrALAZINE 20 MG/1 ML VIAL IV PRN ×3 (05:04→21:47)
[2022-03-05 05:39] LABS: Basophils % 0.1 % (0.0-0.8); Hematocrit 30.7 VOL% (42.0-52.0); Hemoglobin 9.7 GM/DL (14.0-18.0); Immature Granulocytes % 0.2 %; Immature Granulocytes Absolute 0.02 #; Lymphocytes # 0.5 10*3/uL (1.4-4.0); Lymphocytes % 5.2 % (21.2-54.2); Mean Corpuscular HGB Conc 31.6 GM/DL (32-36); Mean Corpuscular Volume 88.2 FL (87-102); Mean Platelet Volume 11.1 FL (9.6-12.0); Monocytes # 0.1 10*3/uL (0.11-0.8); Monocytes % 1.1 % (1.7-12.7); Neutrophils % 93.4 % (38.7-73.9); Platelet Count 212 T/CUMM (130-400); Red Blood Count 3.48 MC/CUMM (3.8-5.5); Red Cell Distribution Width 15.2 % (9.3-17.3); White Blood Count 8.9 T/CUMM (4-12)
[2022-03-05 06:00] LABS: Lymphocytes 7 % (20-55); Platelet Estimate Adequate; Total Cells Counted 100
[2022-03-05 06:04] LABS: Calcium 8.8 MG/DL (8.5-10.1); Osmolality,Calculated 301.1 MOS/KG (273-304); Potassium 5.4 MMOL/L (3.5-5.1)
[2022-03-05] MEDS: INSULIN REGULAR 100 UNIT/ML SUBCUT SCH ×4 (06:49→22:08)
[2022-03-05] MEDS: TAMSULOSIN 0.4 MG CAPSULE PO SCH (08:33)
[2022-03-05] MEDS: ISOSORBIDE MONONITRATE 60 MG TABLET PO SCH (08:33)
[2022-03-05] MEDS: CLOPIDOGREL 75 MG TABLET PO SCH (08:33)
[2022-03-05] MEDS: PANTOPRAZOLE 40 MG TABLET PO SCH ×2 (08:34→21:46)
[2022-03-05] MEDS: FUROSEMIDE 40 MG TABLET PO SCH ×2 (08:34→15:55)
[2022-03-05] MEDS: ASPIRIN CHEW 81 MG TABLET PO SCH (08:34)
[2022-03-05] MEDS: carvediloL 12.5 MG TABLET PO SCH ×2 (08:34→21:45)
[2022-03-05] MEDS: LINEZOLID 600 MG TABLET PO SCH ×2 (08:34→21:46)
[2022-03-05] MEDS: minoxidiL 2.5 MG TABLET PO SCH ×2 (08:34→21:46)
[2022-03-05] MEDS: OSELTAMIVIR 30 MG CAPSULE PO SCH ×2 (08:34→21:45)
[2022-03-05] MEDS: DOCUSATE SODIUM 100 MG CAPSULE PO SCH ×2 (08:34→21:49)
[2022-03-05] MEDS: HEPARIN 5,000 UNIT/1 ML VIAL SUBCUT SCH ×2 (09:59→21:47)
[2022-03-05] MEDS: ACETAMINOPHEN 325 MG TABLET PO PRN (09:59)
[2022-03-05] MEDS: LEVOFLOXACIN INJ 500 MG/100 ML PREMIX IV SCH (16:01)
[2022-03-05] MEDS: DOXAZOSIN 1 MG TABLET PO SCH (21:46)
[2022-03-05] MEDS: ATORVASTATIN 80 MG TABLET PO SCH (21:46)
[2022-03-06] MEDS: ALBUTEROL/IPRATROPIUM 3 ML NEB RESP TX SCH ×4 (00:08→19:40)
[2022-03-06] MEDS: INSULIN REGULAR 100 UNIT/ML SUBCUT SCH ×7 (00:34→20:53)
[2022-03-06] MEDS ORDERED: HYDROCORTISONE 100 MG VIAL IV SCH (01:00)
[2022-03-06] MEDS: hydrALAZINE 20 MG/1 ML VIAL IV PRN (01:20)
[2022-03-06] MEDS: DEXTROSE 10% 1,000 ML IV SCH (03:40)
[2022-03-06 05:09] LABS: Basophils % 0.1 % (0.0-0.8); Hemoglobin 9.2 GM/DL (14.0-18.0); Immature Granulocytes % 0.6 %; Immature Granulocytes Absolute 0.05 #; Lymphocytes # 0.6 10*3/uL (1.4-4.0); Lymphocytes % 7.9 % (21.2-54.2); Mean Corpuscular HGB Conc 30.7 GM/DL (32-36); Mean Corpuscular Volume 89.8 FL (87-102); Mean Platelet Volume 10.6 FL (9.6-12.0); Monocytes # 0.8 10*3/uL (0.11-0.8); Monocytes % 10.1 % (1.7-12.7); Neutrophils % 81.3 % (38.7-73.9); Platelet Count 208 T/CUMM (130-400); Red Blood Count 3.34 MC/CUMM (3.8-5.5); Red Cell Distribution Width 14.9 % (9.3-17.3); White Blood Count 8.2 T/CUMM (4-12)
[2022-03-06 05:41] LABS: Calcium 8.2 MG/DL (8.5-10.1); Potassium 4.7 MMOL/L (3.5-5.1)
[2022-03-06] MEDS: DEXTROSE 10% 250 ML BAG IV PRN (09:13)
[2022-03-06] MEDS: ISOSORBIDE MONONITRATE 60 MG TABLET PO SCH (09:14)
[2022-03-06] MEDS: minoxidiL 2.5 MG TABLET PO SCH ×2 (09:14→20:54)
[2022-03-06] MEDS: ACETAMINOPHEN 325 MG TABLET PO PRN (09:14)
[2022-03-06] MEDS: FUROSEMIDE 40 MG TABLET PO SCH (09:14)
[2022-03-06] MEDS: carvediloL 12.5 MG TABLET PO SCH ×2 (09:14→20:53)
[2022-03-06] MEDS: PANTOPRAZOLE 40 MG TABLET PO SCH ×2 (09:15→20:54)
[2022-03-06] MEDS: DOCUSATE SODIUM 100 MG CAPSULE PO SCH ×2 (09:15→20:54)
[2022-03-06] MEDS: TAMSULOSIN 0.4 MG CAPSULE PO SCH (09:15)
[2022-03-06] MEDS: LINEZOLID 600 MG TABLET PO SCH ×2 (09:15→20:53)
[2022-03-06] MEDS: CLOPIDOGREL 75 MG TABLET PO SCH (09:15)
[2022-03-06] MEDS: ASPIRIN CHEW 81 MG TABLET PO SCH (09:15)
[2022-03-06] MEDS: HEPARIN 5,000 UNIT/1 ML VIAL SUBCUT SCH ×2 (09:17→20:53)
[2022-03-06] MEDS: OSELTAMIVIR 30 MG CAPSULE PO SCH ×2 (12:06→20:53)
[2022-03-06] MEDS: DOXAZOSIN 1 MG TABLET PO SCH (20:53)
[2022-03-06] MEDS: ATORVASTATIN 80 MG TABLET PO SCH (20:53)
[2022-03-06] MEDS: GABAPENTIN 300 MG CAPSULE PO SCH (20:59)
[2022-03-07] MEDS: ALBUTEROL/IPRATROPIUM 3 ML NEB RESP TX SCH ×4 (01:01→19:15)
[2022-03-07 05:45] LABS: Basophils % 0.2 % (0.0-0.8); Eosinophils # 0.1 10*3/uL (0.0-0.87); Eosinophils % 2.2 % (0.00-10.9); Hemoglobin 9.8 GM/DL (14.0-18.0); Immature Granulocytes % 0.3 %; Immature Granulocytes Absolute 0.02 #; Lymphocytes # 1.1 10*3/uL (1.4-4.0); Lymphocytes % 16.7 % (21.2-54.2); Mean Corpuscular HGB Conc 32.7 GM/DL (32-36); Mean Platelet Volume 9.9 FL (9.6-12.0); Monocytes # 0.4 10*3/uL (0.11-0.8); Monocytes % 6.9 % (1.7-12.7); Neutrophils % 73.7 % (38.7-73.9); Platelet Count 245 T/CUMM (130-400); Red Blood Count 3.45 MC/CUMM (3.8-5.5); Red Cell Distribution Width 14.7 % (9.3-17.3); White Blood Count 6.4 T/CUMM (4-12)
[2022-03-07 06:00] LABS: Calcium 8.5 MG/DL (8.5-10.1); Osmolality,Calculated 304.1 MOS/KG (273-304); Potassium 4.1 MMOL/L (3.5-5.1)
[2022-03-07] MEDS: INSULIN REGULAR 100 UNIT/ML SUBCUT SCH ×4 (07:39→22:12)
[2022-03-07] MEDS: PANTOPRAZOLE 40 MG TABLET PO SCH ×2 (08:54→22:11)
[2022-03-07] MEDS: ISOSORBIDE MONONITRATE 60 MG TABLET PO SCH (08:54)
[2022-03-07] MEDS: minoxidiL 2.5 MG TABLET PO SCH ×2 (08:54→22:10)
[2022-03-07] MEDS: carvediloL 12.5 MG TABLET PO SCH ×2 (08:54→22:11)
[2022-03-07] MEDS: CLOPIDOGREL 75 MG TABLET PO SCH (08:54)
[2022-03-07] MEDS: ASPIRIN CHEW 81 MG TABLET PO SCH (08:54)
[2022-03-07] MEDS: HEPARIN 5,000 UNIT/1 ML VIAL SUBCUT SCH ×2 (08:54→22:12)
[2022-03-07] MEDS: LINEZOLID 600 MG TABLET PO SCH (08:54)
[2022-03-07] MEDS: TAMSULOSIN 0.4 MG CAPSULE PO SCH (08:55)
[2022-03-07] MEDS: OSELTAMIVIR 30 MG CAPSULE PO SCH ×2 (08:55→22:11)
[2022-03-07] MEDS: SODIUM CHLORIDE 0.45% 1,000 ML IV SCH (10:37)
[2022-03-07] MEDS: DOCUSATE SODIUM 100 MG CAPSULE PO SCH ×2 (13:12→22:11)
[2022-03-07] MEDS: LEVOFLOXACIN INJ 500 MG/100 ML PREMIX IV SCH (16:47)
[2022-03-07] MEDS: ZINC OXIDE 16% PASTE 57 GM TUBE TOP SCH (22:10)
[2022-03-07] MEDS: GABAPENTIN 300 MG CAPSULE PO SCH (22:11)
[2022-03-07] MEDS: ATORVASTATIN 80 MG TABLET PO SCH (22:11)
[2022-03-07] MEDS: DOXAZOSIN 4 MG TABLET PO SCH (22:11)
[2022-03-08] MEDS: ALBUTEROL/IPRATROPIUM 3 ML NEB RESP TX SCH ×4 (01:28→19:46)
[2022-03-08] MEDS: SODIUM CHLORIDE 0.45% 1,000 ML IV SCH (05:00)
[2022-03-08 05:20] LABS: Basophils % 0.1 % (0.0-0.8); Eosinophils # 0.2 10*3/uL (0.0-0.87); Eosinophils % 2.8 % (0.00-10.9); Hematocrit 31.9 VOL% (42.0-52.0); Immature Granulocytes % 0.4 %; Immature Granulocytes Absolute 0.03 #; Lymphocytes # 0.8 10*3/uL (1.4-4.0); Lymphocytes % 9.9 % (21.2-54.2); Mean Corpuscular HGB Conc 31.3 GM/DL (32-36); Mean Corpuscular Volume 88.4 FL (87-102); Mean Platelet Volume 9.7 FL (9.6-12.0); Monocytes # 0.5 10*3/uL (0.11-0.8); Monocytes % 6.9 % (1.7-12.7); Neutrophils % 79.9 % (38.7-73.9); Platelet Count 228 T/CUMM (130-400); Red Blood Count 3.61 MC/CUMM (3.8-5.5); Red Cell Distribution Width 14.6 % (9.3-17.3); White Blood Count 7.8 T/CUMM (4-12)
[2022-03-08 05:34] LABS: Calcium 8.1 MG/DL (8.5-10.1); Osmolality,Calculated 306.3 MOS/KG (273-304); Potassium 4.4 MMOL/L (3.5-5.1)
[2022-03-08] MEDS: INSULIN REGULAR 100 UNIT/ML SUBCUT SCH ×4 (08:57→21:31)
[2022-03-08] MEDS: DOCUSATE SODIUM 100 MG CAPSULE PO SCH ×2 (08:58→21:32)
[2022-03-08] MEDS: ISOSORBIDE MONONITRATE 60 MG TABLET PO SCH (08:58)
[2022-03-08] MEDS: HEPARIN 5,000 UNIT/1 ML VIAL SUBCUT SCH ×2 (08:58→21:32)
[2022-03-08] MEDS: PANTOPRAZOLE 40 MG TABLET PO SCH ×2 (08:59→21:32)
[2022-03-08] MEDS: carvediloL 12.5 MG TABLET PO SCH ×2 (08:59→21:32)
[2022-03-08] MEDS: TAMSULOSIN 0.4 MG CAPSULE PO SCH (08:59)
[2022-03-08] MEDS: ASPIRIN CHEW 81 MG TABLET PO SCH (08:59)
[2022-03-08] MEDS: OSELTAMIVIR 30 MG CAPSULE PO SCH (12:00)
[2022-03-08] MEDS ORDERED: guaiFENesin 200 MG/10 ML UDCUP PO PRN (14:12)
[2022-03-08] MEDS: ZINC OXIDE 16% PASTE 57 GM TUBE TOP SCH ×2 (17:22→22:50)
[2022-03-08] MEDS: ATORVASTATIN 80 MG TABLET PO SCH (21:32)
[2022-03-08] MEDS: GABAPENTIN 300 MG CAPSULE PO SCH (21:32)
[2022-03-08] MEDS: DOXAZOSIN 4 MG TABLET PO SCH (21:32)
[2022-03-09] MEDS: ALBUTEROL/IPRATROPIUM 3 ML NEB RESP TX SCH ×4 (00:37→19:34)
[2022-03-09] MEDS: SODIUM CHLORIDE 0.45% 1,000 ML IV SCH (01:59)
[2022-03-09] MEDS: hydrALAZINE 20 MG/1 ML VIAL IV PRN (04:12)
[2022-03-09] MEDS: HEPARIN 5,000 UNIT/1 ML VIAL SUBCUT SCH ×2 (08:36→20:50)
[2022-03-09] MEDS: ISOSORBIDE MONONITRATE 60 MG TABLET PO SCH (08:36)
[2022-03-09] MEDS: carvediloL 12.5 MG TABLET PO SCH ×2 (08:36→20:46)
[2022-03-09] MEDS: ASPIRIN CHEW 81 MG TABLET PO SCH (08:36)
[2022-03-09] MEDS: DOCUSATE SODIUM 100 MG CAPSULE PO SCH ×2 (08:36→20:46)
[2022-03-09] MEDS: TAMSULOSIN 0.4 MG CAPSULE PO SCH (08:37)
[2022-03-09] MEDS: PANTOPRAZOLE 40 MG TABLET PO SCH ×2 (08:37→20:46)
[2022-03-09] MEDS: INSULIN REGULAR 100 UNIT/ML SUBCUT SCH ×4 (08:56→21:15)
[2022-03-09 09:27] LABS: Basophils % 0.2 % (0.0-0.8); Eosinophils # 0.2 10*3/uL (0.0-0.87); Eosinophils % 2.5 % (0.00-10.9); Hematocrit 29.9 VOL% (42.0-52.0); Hemoglobin 9.5 GM/DL (14.0-18.0); Immature Granulocytes % 0.5 %; Immature Granulocytes Absolute 0.03 #; Lymphocytes # 1.2 10*3/uL (1.4-4.0); Lymphocytes % 19.5 % (21.2-54.2); Mean Corpuscular HGB Conc 31.8 GM/DL (32-36); Mean Corpuscular Volume 87.2 FL (87-102); Mean Platelet Volume 9.8 FL (9.6-12.0); Monocytes # 0.4 10*3/uL (0.11-0.8); Neutrophils % 70.3 % (38.7-73.9); Platelet Count 190 T/CUMM (130-400); Red Blood Count 3.43 MC/CUMM (3.8-5.5); Red Cell Distribution Width 14.9 % (9.3-17.3)
[2022-03-09 09:35] LABS: Calcium 8.1 MG/DL (8.5-10.1); Osmolality,Calculated 306.4 MOS/KG (273-304); Potassium 4.6 MMOL/L (3.5-5.1)
[2022-03-09] MEDS ORDERED: MAGNESIUM HYDROXIDE SUSP 30 ML UDCUP PO ONE (11:00)
[2022-03-09] MEDS: POLYETHYLENE GLYCOL POWDER 17 GM PACK PO SCH (13:09)
[2022-03-09] MEDS: LEVOFLOXACIN INJ 500 MG/100 ML PREMIX IV SCH (16:27)
[2022-03-09] MEDS: ZINC OXIDE 16% PASTE 57 GM TUBE TOP SCH ×2 (17:24→20:46)
[2022-03-09] MEDS: ATORVASTATIN 80 MG TABLET PO SCH (20:46)
[2022-03-09] MEDS: GABAPENTIN 300 MG CAPSULE PO SCH (20:46)
[2022-03-09] MEDS: DOXAZOSIN 4 MG TABLET PO SCH (20:46)
[2022-03-10] MEDS: SODIUM CHLORIDE 0.45% 1,000 ML IV SCH
[2022-03-10] MEDS: ALBUTEROL/IPRATROPIUM 3 ML NEB RESP TX SCH ×3 (00:47→07:30)
[2022-03-10 05:36] LABS: Basophils % 0.4 % (0.0-0.8); Eosinophils # 0.5 10*3/uL (0.0-0.87); Eosinophils % 7.5 % (0.00-10.9); Hematocrit 38.9 VOL% (42.0-52.0); Hemoglobin 12.3 GM/DL (14.0-18.0); Immature Granulocytes % 0.4 %; Immature Granulocytes Absolute 0.03 #; Lymphocytes # 1.1 10*3/uL (1.4-4.0); Lymphocytes % 14.7 % (21.2-54.2); Mean Corpuscular HGB Conc 31.6 GM/DL (32-36); Mean Platelet Volume 11.2 FL (9.6-12.0); Monocytes # 0.5 10*3/uL (0.11-0.8); Monocytes % 6.2 % (1.7-12.7); Neutrophils % 70.8 % (38.7-73.9); Platelet Count 142 T/CUMM (130-400); Red Blood Count 4.42 MC/CUMM (3.8-5.5); White Blood Count 7.2 T/CUMM (4-12)
[2022-03-10 06:09] LABS: Alanine Aminotransferase 30 U/L (16-61); Albumin 2.2 G/DL (3.4-5.0); Alkaline Phosphatase 36 U/L (45-117); Aspartate Amino Transferase 20 U/L (0-37); Bilirubin,Total < 0.39 MG/DL (0.20-1.00); Blood Urea Nitrogen 56 MG/DL (7-18); Calcium 8.2 MG/DL (8.5-10.1); Carbon Dioxide 26 MMOL/L (21-32); Chloride 110 MMOL/L (98-107); Glucose 256 MG/DL (74-106); Osmolality,Calculated 303.4 MOS/KG (273-304); Potassium 4.8 MMOL/L (3.5-5.1); Sodium 140 MMOL/L (136-145); Total Protein 6.1 G/DL (6.4-8.2)
[2022-03-10] MEDS: ISOSORBIDE MONONITRATE 60 MG TABLET PO SCH (10:17)
[2022-03-10] MEDS: ASPIRIN CHEW 81 MG TABLET PO SCH (10:17)
[2022-03-10] MEDS: TAMSULOSIN 0.4 MG CAPSULE PO SCH (10:17)
[2022-03-10] MEDS: DOCUSATE SODIUM 100 MG CAPSULE PO SCH (10:18)
[2022-03-10] MEDS: carvediloL 12.5 MG TABLET PO SCH (10:18)
[2022-03-10] MEDS: INSULIN REGULAR 100 UNIT/ML SUBCUT SCH ×2 (10:19→13:19)
[2022-03-10] MEDS: ZINC OXIDE 16% PASTE 57 GM TUBE TOP SCH (10:20)
[2022-03-10] MEDS: HEPARIN 5,000 UNIT/1 ML VIAL SUBCUT SCH (10:22)
[2022-03-10] MEDS: PANTOPRAZOLE 40 MG TABLET PO SCH (10:29)
[2022-03-10] MEDS: POLYETHYLENE GLYCOL POWDER 17 GM PACK PO SCH (10:30)
[2022-03-10 12:26] VITALS: BP 188/83
== END 2022-03-10 16:30 | disposition home health service (06) | DRG 193 ==
LOC: N.ED 16:48 → N.EDINP 16:48 → SUATTDRO 19:24 → N.2W 03-03 02:54 → N.5E 03-06 13:18
PROVIDERS: ADMIT Hospitalist; ATTEND Internal Medicine